=== PATIENT | male | born 1995 | race Caucasian/White ===

== ENCOUNTER 2016-04-23 | Emergency (ER) | payer OTHER ==
--- NOTE | 2016-04-23 16:44 | ED Physician Documentation ---
PD HPI LOWER EXT INJURY - Stated complaint Stated Complaint: R LEG INURY - Chief complaint Chief Complaint: Trauma Ext - History obtained from History obtained from: Patient - History of Present Illness PD HPI LOW EXT INJURY LOCATION: Right Type of injury: Fall Where injury occurred: Home Timing - onset: Today - Additional information Additional information: Fall at work today into a pit at work ([employer]). Scraped right hip, no other injury. Can walk. Pain not bad. Review of Systems Constitutional: reports: Reviewed and negative Cardiac: reports: Reviewed and negative Respiratory: reports: Reviewed and negative Neurologic: denies: Headache, Head injury, LOC PD PAST MEDICAL HISTORY - Past Medical History Past Medical History: No - Past Surgical History Past Surgical History: No - Present Medications Home Medications: Ambulatory Orders Medication Instructions Recorded Confirmed No Known Home Medications [No 04/23/16 04/23/16 Known Home Medications] - Allergies Allergies/Adverse Reactions: Allergies Allergy/AdvReac Type Severity Reaction Status Date / Time No Known Drug Allergies Allergy Verified 04/23/16 16:37 - Social History Does the pt smoke?: Yes Smoking Status: Current every day smoker Does the pt drink ETOH?: No Does the pt have substance abuse?: Yes Substance Use and Type: Marijuana - Immunizations Immunizations are current?: Yes Immunizations: Other immun current - POLST Patient has POLST: No PD ED PE NORMAL - Vitals Vital signs reviewed: Yes - General General: Alert and oriented X 3, No acute distress - Extremities Extremities: Other (Small bruise with overlying abrasion, maybe 3cm around over right greater trochanter. NTTP. Can walk and bear weight and stand on the leg alone and pivot.) - Neuro Neuro: Alert and oriented X 3, Normal speech - Psych Psych: Normal mood, Normal affect Results - Vitals Vitals: Vital Signs - 24 hr 04/23/16 16:35 Temperature 37 C Heart Rate 60 Respiratory 14 Rate Blood Pressure 130/77 O2 Saturation 98 Departure - Departure Disposition: 01 Home, Self Care Clinical Impression: Abrasion, right hip, initial encounter Qualifiers: Encounter type: initial encounter Qualified Code(s): S70.211A - Abrasion, right hip, initial encounter Contusion of right hip Qualifiers: Encounter type: initial encounter Qualified Code(s): S70.01XA - Contusion of right hip, initial encounter Condition: Good Record reviewed to determine appropriate education?: Yes Instructions: ED Abrasion Comments: See your doctor in 1 week if not better.
== END 2016-04-23 16:50 | disposition home or self-care (01) ==
CPT/HCPCS: 1040M; 99282; 99283

== ENCOUNTER 2020-09-01 22:24 | Outpatient (CLI) | payer SELFPAY | END 2020-09-01 22:25 | disposition E | LOC: EMS 22:24 | DX: S01.03XA Puncture wound without foreign body of scalp, initial encounter (principal); W32.0XXA Accidental handgun discharge, initial encounter; Y93.89 Activity, other specified; Y92.008 Other place in unspecified non-institutional (private) residence as the place of occurrence of the external cause ==